=== PATIENT | female | born 1960 | race Caucasian/White ===

== ENCOUNTER 2018-08-18 18:59 | Emergency (ER) | payer BC ==
[~2018-08-18] VITALS: Ht 162.6 cm; Wt 59.1 kg
[2018-08-18] MEDS ORDERED: ondansetron 4mg rapidly disintigrating tab PO PRN (19:25)
[2018-08-18] MEDS ORDERED: acetaminophen 325mg tablet PO PRN (19:25)
[2018-08-18] MEDS ORDERED: normal saline 1000ML IV soln IVB ONE (20:10)
[2018-08-18] MEDS ORDERED: morphine 4 MG/ML inj SYRINge IV ONE (20:10)
[2018-08-18] MEDS ORDERED: ondansetron/PF 4mg/2ml inj IV ONE (20:10)
[2018-08-18 20:16] VITALS: BP 139/77
[2018-08-18] MEDS ORDERED: ONDA4TAB9 PO (21:33)
== END 2018-08-18 21:43 | disposition home or self-care (01) ==
LOC: ER 19:00
DX: S06.0X0A Concussion without loss of consciousness, initial encounter (principal); S00.03XA Contusion of scalp, initial encounter; S00.83XA Contusion of other part of head, initial encounter; R68.84 Jaw pain; Z88.5 Allergy status to narcotic agent; Z79.899 Other long term (current) drug therapy; W07.XXXA Fall from chair, initial encounter; Y93.89 Activity, other specified; Y92.89 Other specified places as the place of occurrence of the external cause; Y99.8 Other external cause status
CPT/HCPCS: 70450; 70486; 99284